=== PATIENT | female | born 1960 | race Caucasian/White ===

== ENCOUNTER 2017-08-04 13:56 | Emergency (ER) | payer OTHER ==
[2017-08-04] MEDS ORDERED: Marcaine 0.5% SDV 10 ML IJ ONE (14:15)
[2017-08-04] MEDS ORDERED: BACIGUENT PACKET TP ONE (14:15)
[2017-08-04] MEDS ORDERED: Marcaine 0.5% SDV 10 ML ONE (14:16)
[2017-08-04] MEDS ORDERED: Sodium Chloride 0.9% 1000 ML 1,000 ML ONE (14:37)
--- NOTE | 2017-08-04 14:54 | ERPHSYRPT ---
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 ET BIT HER-REPORTS BITE TO RIGHT FORARM-DENIES PAIN ELSEWHERE Triage Nursing Assessment: PT PINK WARM ET [id number] NOTED TO RIGHT FORARM WITH BLEEDING CONTROLLED SLIVER LAP TENDER-RADIAL PULSE REGULAR ET STRONG Physician History: patient presents from work having suffered a dog bit to her distal right forearm /wrist; no other injuries or complaints; just happened on postal route, no numbness or weakness distal; local pain; minimal bleeding; Occurred: just prior to arrival, this afternoon Method of Injury: other (dog bite) Quality: aching Severity of Pain-Max: severe Severity of Pain-Current: moderate Extremities Pain Location: forearm: right (distal voalr and dorsal aspects) Modifying Factors: Improves With: immobilization (helps) Associated Symptoms: none Allergies/Adverse Reactions: venom-honey bee [bee venom (honey bee)] Allergy (Verified 08/04/17 14:11) Home Medications: No Home Meds [No Home Meds] 1 [facility] 05/24/15 [History] Hx Tetanus, Diphtheria Vaccination/Date Given: Yes Hx Influenza Vaccination/Date Given: No Hx Pneumococcal Vaccination/Date Given: No Immunizations Up to Date: Yes - Review of Systems Constitutional: No Symptoms Eyes: No Symptoms Ears, Nose, & Throat: No Symptoms Respiratory: No Cough, No Dyspnea, No Wheezing Cardiac: No Chest Pain, No Palpitations, No Syncope Abdominal/Gastrointestinal: No Abdominal Pain, No Nausea, No Vomiting, No Diarrhea Genitourinary Symptoms: No Symptoms Musculoskeletal: Injury (dog bite right distal forearm), No Back Pain, No Neck Pain, No Joint Pain Skin: Other (PW and lac from dog bite right distal forearm) Neurological: No Symptoms Psychological: No Symptoms Endocrine: No Symptoms Hematologic/Lymphatic: No Symptoms Immunological/Allergic: No Symptoms - Past Medical History Pertinent Past Medical History: No - Past Surgical History Past Surgical History: No Other Surgical History: LT ARM SURGERY POST FALL - Social History Smoking Status: Never smoker Exposure to second hand smoke: No Alcohol Use: Socially Drug Use: none Patient Lives Alone: No Significant Family History: no pertinent family hx - Female History Hx Now: No - Nursing Vital Signs Nursing Vital Signs: Initial Vital Signs Temperature 98.1 F 08/04/17 14:03 Pulse Rate 105 H 08/04/17 14:03 Respiratory Rate 20 08/04/17 14:03 Blood Pressure 154/99 08/04/17 14:03 O2 Sat by Pulse Oximetry 96 08/04/17 14:03 Pain Scale Pain Intensity 1 - Physical Exam General Appearance: moderate distress (dog bite right forearm distal), alert Eyes, Ears, Nose, Throat Exam: normal ENT inspection, TMs normal, pharynx normal , moist mucous membranes Neck Exam: normal inspection, non-tender, supple, full range of motion Cardiovascular/Respiratory Exam: chest non-tender, normal breath sounds, regular rate/rhythm, heart sounds normal, no ecchymosis, no JVD, no M/R/G Abdominal Exam: non-tender, soft, no organomegaly Back Exam: normal inspection, normal range of motion, No vertebral tenderness Shoulder Exam: normal inspection, non-tender, no evidence of injury, normal ROM Elbow/Forearm Exam: normal ROM, pain, soft tissue tenderness (dog bite with 3 cm gaping laceration lateral distal right forearm and 3 PW medial dorsal distal right forearm; no FB found; minimal bleeding; no distal neurovascular compromise ), No normal inspection, No non-tender, No no evidence of injury Wrist Exam: normal inspection, non-tender, no evidence of injury, normal ROM Hand Exam: normal inspection, non-tender, no evidence of injury, normal ROM Neuro/Tendon Exam: normal sensation, normal motor functions, normal tendon functions, responds to pain, no evidence tendon injury Mental Status Exam: alert, oriented x 3, cooperative Skin Exam: normal color, warm, dry, laceration (3cm dog bite distdal right forearm and 3 PW opposite side), No rash SpO2 Interpretation: normal SpO2: 96 Oxygen Delivery: Room Air - Course Nursing assessment & vital signs reviewed: Yes - Radiology Exams Right Forearm X-ray Interpretation: Interpreted by me, No Fracture, Other (no FB; STS and air) Ordered Tests: Active Orders 24 hr Category Date Time Status Re-Check Vital Signs STAT Care 08/04/17 14:15 Active Wound Care STAT Care 08/04/17 14:15 Active WRIST (MIN 3 VIEWS) Stat Exams 08/04/17 14:17 Taken CULTURE,WOUND Stat Lab 08/04/17 14:00 Received Medication Summary Discontinued Medications Generic Name Dose Route Start Last Admin Trade Name Dalia PRN Reason Stop Dose Admin Bacitracin 0.9 gm 08/04/17 14:15 08/04/17 14:22 Baciguent Packet TP 08/04/17 14:16 0.9 gm STAT ONE Administration Bupivacaine HCl 5 ml 08/04/17 14:15 08/04/17 14:22 Marcaine 0.5% Sdv 10 Ml IJ 08/04/17 14:16 5 ml STAT ONE Administration Bupivacaine HCl Confirm 08/04/17 14:16 Marcaine 0.5% Sdv 10 Ml Administered 08/04/17 14:17 Dose 10 ml .ROUTE .STK-MED ONE Sodium Chloride Confirm 08/04/17 14:37 Sodium Chloride 0.9% 1000 Ml Administered 08/04/17 14:38 Dose 1,000 mls @ ud .ROUTE .STK-MED ONE - Progress Progress: improved (after meds), re-examined (afdter xr) Progress Note: 08/04/17 14:55 discussed treatment plan; will have local anesthesia; irrigate copiously, explore; xr for FB; apply sterile dressing; give ATBS and instructions for follow up with lmd for secondary closure in a few days if needed 08/04/17 15:40 xr neg; reviewed instructions; patient has an appt Tuesday at 215 with her LMD for recheck and evaluations Counseled pt/family regarding: diagnosis, need for follow-up, rad results - Departure Time of Disposition: 15:41 Departure Disposition: Home Clinical Impression: dog bite laceration and PWs x3, distal right forearm, Dog bite of forearm Condition: Stable Critical Care Time: No Referrals: RAINE CLAYTON PA [Primary Care Provider] - Instructions: Animal Bites Additional Instructions: elevate; clean; recheck her LMD Tuesday 215 ; motrin otc may return to work with light duty Follow-up with family doctor as directed. Call for appointment. Return if any problems. If you smoke please stop. Call or follow up with your family doctor for assistance if you need it to stop. Please wear your seatbelt when driving. Have a nice day. Thank you for allowing us to participate in your care today. :o) Dr Evelio Torres Prescriptions: Hydrocodone/Acetaminophen [Vicodin 5-300 mg Tablet] 1 each PO Q8H PRN PRN #10 tablet PRN Reason: Pain Amoxicillin/Potassium Clav [Augmentin 500-125 Tablet] 500 mg PO TID #30 tablet
--- NOTE | 2017-08-04 15:53 | XRAY ---
Exam: 3 view right wrist series from 08/04/2017. Comparison: None. Indication: Dog bite to distal right forearm, pain and laceration of right wrist. Findings: AP, oblique, and lateral radiographs are submitted for evaluation. I see no acute fracture or dislocation. No radiopaque soft tissue foreign body is seen. However, there is soft tissue swelling as well as some soft tissue air seen along both the radial and ulnar aspects of the distal right forearm, apparently from the dog bite. Impression: 1. No acute fracture or dislocation of the right wrist is seen. 2. Soft tissue swelling and soft tissue air are noted about the distal right forearm just proximal to the wrist joint, apparently due to the dog bite. Correlate clinically. No radiopaque soft tissue foreign body is seen.
[2017-08-04 16:06] VITALS: BP 137/90; PULSE 86; O2SAT 95
== END 2017-08-04 16:01 | disposition home or self-care (01) ==
LOC: ED 13:56
DX: S51.851A Open bite of right forearm, initial encounter (principal); W54.0XXA Bitten by dog, initial encounter
CPT/HCPCS: 73110; 87070; 99283; A9270-GY